=== PATIENT | female | born 1955 | race Caucasian/White ===

== ENCOUNTER 2020-07-03 08:09 | Emergency (ER) | payer BC ==
[2020-07-03] MEDS ORDERED: Sodium Chloride 0.9% 10 ML Syringe FLUSH PRN (08:34)
[2020-07-03] MEDS ORDERED: Metoprolol Tartrate 50 MG Tab PO ONE (08:36)
[2020-07-03] MEDS ORDERED: Aspirin 81 MG Tab.Chew PO ONE (08:36)
--- NOTE | 2020-07-03 08:38 | EDM.PDOC ---
ED HPI GENERAL MEDICAL PROBLEM - General Chief Complaint: Cardiovascular Problem Stated Complaint: HAD A RAPID HEART BEAT, CLINIC SAID TO COME HERE Time Seen by Provider: 07/03/20 08:35 Source of Information: Reports: Patient, Old Records, RN History Limitations: Reports: No Limitations - History of Present Illness INITIAL COMMENTS - FREE TEXT/NARRATIVE: 64 yo female presents with heart palpitations that began about 0130h today. She otherwise feels well and denies diaphoresis, SOSA, CP, or palpitations. She has not had her BP measured in years. The last time she went to Dr. Worthy her BP was mildly elevated and she did not want to go on meds. Since she was overweight she made a concerted effort to lose weight and has managed to lose about 60#. She apparently assumed that with this accomplishment she did not need to be concerned about her BP. She has had brief episodes of rapid HR lasting seconds and did not report this to any medical providers. 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) - Related Data Allergies Allergy/AdvReac Type Severity Reaction Status Date / Time No Known Allergies Allergy Verified 07/03/20 08:35 Home Meds: Home Meds Metoprolol Succinate 200 mg PO BEDTIME #30 tab.er.24h 07/03/20 [Rx] Past Medical History - Past Health History Medical/Surgical History: Denies Medical/Surgical History Social & Family History - Tobacco Use Smoking Status *Q: Never Smoker - Caffeine Use Caffeine Use: Reports: Coffee - Alcohol Use Days Per Week of Alcohol Use: 4 Number of Drinks Per Day: 1 Total Drinks Per Week: 4 - Recreational Drug Use Recreational Drug Use: No ED ROS GENERAL - Review of Systems Review Of Systems: See Below Constitutional: Reports: No Symptoms HEENT: Reports: No Symptoms Respiratory: Reports: No Symptoms Cardiovascular: Reports: Palpitations Endocrine: Reports: No Symptoms GI/Abdominal: Reports: No Symptoms : Reports: No Symptoms Musculoskeletal: Reports: No Symptoms Skin: Reports: No Symptoms Neurological: Reports: No Symptoms Psychiatric: Reports: No Symptoms ED EXAM, GENERAL - Physical Exam Exam: See Below Exam Limited By: No Limitations General Appearance: Alert, WD/WN, No Apparent Distress Eye Exam: Bilateral Eye: Normal Inspection Ears: Normal External Exam, Normal Canal, Hearing Grossly Normal, Normal TMs Ear Exam: Bilateral Ear: Auricle Normal, Canal Normal, TM normal Nose: Normal Inspection, No Blood Throat/Mouth: Normal Inspection, Normal Lips, Normal Oropharynx, Normal Voice, No Airway Compromise Head: Atraumatic, Normocephalic Neck: Normal Inspection Respiratory/Chest: No Respiratory Distress, Lungs Clear, Normal Breath Sounds, No Accessory Muscle Use Cardiovascular: Regular Rate, Rhythm, No Edema, Tachycardia GI/Abdominal: Normal Bowel Sounds, Soft, Non-Tender, No Distention Extremities: Normal Inspection, Normal Range of Motion, Non-Tender, No Pedal Edema Neurological: Alert, Oriented, CN II-XII Intact, Normal Cognition, No Motor/Sensory Deficits Psychiatric: Normal Affect, Normal Mood Skin Exam: Warm, Dry, Intact, Normal Color, No Rash EKG INTERPRETATION EKG Date: 07/03/20 Time: 08:30 Rhythm: A-Flutter Rate (Beats/Min): 135 Smiley: Normal P-Wave: Absent QRS: Normal ST-T: Normal QT: Normal Comparison: NA - No Prior EKG Course - Vital Signs Text/Narrative:: [id number] score 2: CVA risk 2.2% per year Last Recorded V/S: Last Vital Signs Temp 36.8 C 07/03/20 08:34 Pulse 77 07/03/20 10:06 Resp 17 07/03/20 09:55 BP 184/91 H 07/03/20 10:06 Pulse Ox 98 07/03/20 09:55 - Orders/Labs/Meds Orders: Active Orders 24 hr Category Date Time Status Cardiac Monitoring [RC] .As Directed Care 07/03/20 08:34 Active EKG Documentation Completion [RC] ASDIRECTED Care 07/03/20 09:10 Active Metoprolol Tartrate [Lopressor] Med 07/03/20 10:40 Once 25 mg PO ONETIME ONE Sodium Chloride 0.9% [Saline Flush] Med 07/03/20 08:34 Active 10 ml FLUSH ASDIRECTED PRN Saline Lock Insert [OM.PC] Routine Oth 10/05/20 08:34 Ordered EKG 12 Lead [EK] Routine Ther 07/03/20 09:10 Ordered Medication Orders Sodium Chloride (Saline Flush) 10 ml FLUSH ASDIRECTED PRN PRN Reason: Keep Vein Open Last Admin: 07/03/20 08:54 Dose: 10 ml Documented by: JEANINE Labs: Laboratory Tests 07/03/20 07/03/20 Range/Units 08:59 08:59 WBC 4.8 (4.5-11.0) K/uL RBC 5.12 (3.30-5.50) M/uL Hgb 14.1 (12.0-15.0) g/dL Hct 44.0 (36.0-48.0) % MCV 86 (80-98) fL MCH 28 (27-31) pg MCHC 32 (32-36) % Plt Count 253 (150-400) K/uL Sodium 137 L (140-148) mmol/L Potassium 3.9 (3.6-5.2) mmol/L Chloride 103 (100-108) mmol/L Carbon Dioxide 27 (21-32) mmol/L Anion Gap 10.9 (5.0-14.0) mmol/L BUN 16 (7-18) mg/dL Creatinine 1.0 (0.6-1.0) mg/dL Est Cr Clr Drug Dosing 57.33 mL/min Estimated GFR (MDRD) 56 L (>60) Glucose 111 H (74-106) mg/dL Calcium 9.5 (8.5-10.1) mg/dL Troponin I < 0.017 (0.000-0.056) ng/mL TSH, Ultra Sensitive 0.045 L (0.358-3.740) uIU/mL Meds: Medications Generic Name Dose Route Start Last Admin Trade Name Freq PRN Reason Stop Dose Admin Sodium Chloride 10 ml 07/03/20 08:34 07/03/20 08:54 Saline Flush FLUSH 10 ml ASDIRECTED PRN Administration Keep Vein Open Discontinued Medications Generic Name Dose Route Start Last Admin Trade Name Freq PRN Reason Stop Dose Admin Aspirin 324 mg 07/03/20 08:36 07/03/20 08:48 Aspirin PO 07/03/20 08:37 324 mg ONETIME ONE Administration Metoprolol Tartrate 50 mg 07/03/20 08:36 07/03/20 08:47 Lopressor PO 07/03/20 08:37 50 mg ONETIME ONE Administration Metoprolol Tartrate 25 mg 07/03/20 09:57 07/03/20 10:06 Lopressor PO 07/03/20 09:58 25 mg ONETIME ONE Administration - Re-Assessments/Exams Free Text/Narrative Re-Assessment/Exam: 07/03/20 10:40 Converted to NSR here in the ER. BP coming down with metoprolol. Departure - Departure Time of Disposition: 11:00 Disposition: Home, Self-Care 01 Clinical Impression: Hyperthyroidism Atrial flutter Qualifiers: Atrial flutter type: unspecified Qualified Code(s): I48.92 - Unspecified atrial flutter HTN (hypertension) Qualifiers: Hypertension type: unspecified Qualified Code(s): I10 - Essential (primary) hypertension Prescriptions: Metoprolol Succinate 200 mg PO BEDTIME #30 tab.er.24h Instructions: Hypertension, Adult, [id number], Atrial Flutter, Hyperthyroidism Referrals: Len Worthy MD [Primary Care Provider] - Forms: ED Department Discharge Additional Instructions: Take metoprolol succinate 200 mg at bedtime daily. Follow up with your provider soon to get your over active thyroid problem worked up. Take aspirin 325 mg daily with food. Return your Holter monitor for analysis. Return here as needed. Sepsis Event Note (ED) - Evaluation Sepsis Screening Result: No Definite Risk - Focused Exam Vital Signs: Vital Signs Temp Pulse Pulse Resp BP BP Pulse Ox 07/03/20 10:06 77 184/91 H 07/03/20 09:55 75 17 184/91 H 98 07/03/20 09:25 83 179/96 H 07/03/20 08:54 105 H 17 225/107 H 97 07/03/20 08:47 104 H 207/123 H 07/03/20 08:34 36.8 C 143 H 14 207/123 H 97 07/03/20 08:28 36.8 C 143 H 14 207/123 H 97 - My Orders Last 24 Hours: My Active Orders 07/03/20 08:34 Cardiac Monitoring [RC] .As Directed Sodium Chloride 0.9% [Saline Flush] 10 ml FLUSH ASDIRECTED PRN Saline Lock Insert [OM.PC] Routine 07/03/20 09:10 EKG Documentation Completion [RC] ASDIRECTED EKG 12 Lead [EK] Routine 07/03/20 10:40 Metoprolol Tartrate [Lopressor] 25 mg PO ONETIME ONE - Assessment/Plan Last 24 Hours: My Active Orders 07/03/20 08:34 Cardiac Monitoring [RC] .As Directed Sodium Chloride 0.9% [Saline Flush] 10 ml FLUSH ASDIRECTED PRN Saline Lock Insert [OM.PC] Routine 07/03/20 09:10 EKG Documentation Completion [RC] ASDIRECTED EKG 12 Lead [EK] Routine 07/03/20 10:40 Metoprolol Tartrate [Lopressor] 25 mg PO ONETIME ONE
[2020-07-03] MEDS ORDERED: Metoprolol Tartrate 25 MG Tab PO ONE ×2 (09:57→10:40)
[2020-07-03 10:08] VITALS: PULSE 75
[2020-07-03 10:48] VITALS: BP 165/94
== END 2020-07-03 11:05 | disposition home or self-care (01) ==
LOC: JP.ED 08:09
DX: I48.92 Unspecified atrial flutter (principal); E05.90 Thyrotoxicosis, unspecified without thyrotoxic crisis or storm; I10 Essential (primary) hypertension
CPT/HCPCS: 36415; 80048; 84443; 84484; 85027; 93005; 99285; A9270; 93010; 99283